=== PATIENT | male | born 1985 | race African-American/Black ===

== ENCOUNTER 2022-04-09 16:16 | Emergency (ER) | payer MEDICAID, OTHER ==
[~2022-04-09] VITALS: Ht 185.4 cm; Wt 86.0 kg
[2022-04-09] MEDS ORDERED: ACETAMINOPHEN 325MG TABLET PO ONE (16:30)
[2022-04-09] MEDS ORDERED: ACETAMINOPHEN 325MG TABLET PO NR (16:30)
[2022-04-09] MEDS ORDERED: MORPHINE SULFATE 10 MG/ML CPJ IM ONE (16:45)
[2022-04-09] MEDS ORDERED: MORPHINE SULFATE 10 MG/ML CPJ IM NR (16:45)
[2022-04-09] MEDS ORDERED: SODIUM CHLORIDE 0.9% 1,000 ML IV ONE (18:00)
[2022-04-09] MEDS ORDERED: LIDOCAINE HCL 1% 20ML VIAL (Pyxis) INJ INFIL ONE (18:00)
[2022-04-09] MEDS ORDERED: MORPHINE SULFATE 4 MG/ML CPJ (NOT FOR IM USE) IV ONE (19:00)
[2022-04-09 19:05] LABS: BASOPHILS % 0.5 % (0.0-2.0); EOSINOPHILS % 0.8 % (0.0-5.0); HEMATOCRIT. 36.8 % (42.0-52.0); HEMOGLOBIN. 11.8 g/dL (14.0-18.0); LYMPHOCYTES % 8.6 % (20.0-50.0); MEAN CORPUSCULAR VOLUME 78.1 fL (80.0-94.0); MONOCYTES % 4.8 % (2.0-8.0); NEUTROPHILS % 85.3 % (40.0-76.0); PLATELET 356 x1000/uL (130-400); RED BLOOD CELL COUNT 4.71 mill/uL (4.7-6.1); RED CELL DISTRIBUTION WIDTH 19.1 % (11.6-14.6)
[2022-04-09] MEDS ORDERED: IBUP-2029 MT (22:50)
[2022-04-09] MEDS ORDERED: HYDR-4009 MT (22:50)
[2022-04-10] MEDS ORDERED: ACETAMINOPHEN 325MG TABLET PO ONE (01:00)
[2022-04-10 01:06] VITALS: BP 128/81
== END 2022-04-10 01:08 | disposition home or self-care (01) ==
LOC: ER 16:16
DX: S83.92XA Sprain of unspecified site of left knee, initial encounter (principal); M25.00 Hemarthrosis, unspecified joint; M25.562 Pain in left knee; Z98.890 Other specified postprocedural states; X58.XXXA Exposure to other specified factors, initial encounter; Y93.89 Activity, other specified; Y92.89 Other specified places as the place of occurrence of the external cause; Y99.8 Other external cause status
CPT/HCPCS: 20610; 36415; 73562; 83605; 85025; 87040; 87070; 87205; 93971; 96361; 96374; 99285; J2270; J3490